=== PATIENT | female | born 1975 | race Caucasian/White ===

== ENCOUNTER 2017-10-16 23:04 | Emergency (ER) | payer OTHER ==
[2017-10-16] MEDS ORDERED: LORazepam 2 MG/ML SDV IVPUSH ONE (23:11)
[2017-10-16] MEDS ORDERED: Sodium Chloride 0.9% 1,000 ML IV ONE (23:11)
--- NOTE | 2017-10-16 23:13 | EDM.PDOC ---
ED HPI GENERAL MEDICAL PROBLEM - General Stated Complaint: PT HAS CHEST PAINS Time Seen by Provider: 10/17/17 01:01 Source of Information: Reports: Patient - History of Present Illness INITIAL COMMENTS - FREE TEXT/NARRATIVE: HISTORY AND PHYSICAL: History of present illness: [Patient presents with complaint of chest pain off and on throughout the day sharp left-sided pain stabbing in nature not associated with diaphoresis or shortness of breath she is out of 10 in no distress no radiation arm neck or jaw History of anxiety No fever nausea vomiting chills sweats no current chest pain no shortness of breath headache dizziness palpitation no bowel or urine symptoms ] Review of systems: As per history of present illness and below otherwise all systems reviewed and negative. Past medical history: As per history of present illness and as reviewed below otherwise noncontributory. Surgical history: As per history of present illness and as reviewed below otherwise noncontributory. Social history: No reported history of drug or alcohol abuse. Family history: As per history of present illness and as reviewed below otherwise noncontributory. Physical exam: HEENT: Atraumatic, normocephalic, pupils reactive, negative for conjunctival pallor or scleral icterus, mucous membranes moist, throat clear, neck supple, nontender, trachea midline. Lungs: Clear to auscultation, breath sounds equal bilaterally, chest nontender on the right can reproduce pain with palpation on the left sternal border, quite uncomfortable from patient Heart: S1S2, regular, negative for clicks, rubs, or JVD. Abdomen: Soft, nondistended, nontender. Negative for masses or hepatosplenomegaly. Negative for costovertebral tenderness. Pelvis: Stable nontender. Genitourinary: Deferred. Rectal: Deferred. Extremities: Atraumatic, negative for cords or calf pain. Neurovascular unremarkable. Neuro: Awake, alert, oriented. Cranial nerves II through XII unremarkable. Cerebellum unremarkable. Motor and sensory unremarkable throughout. Exam nonfocal. Diagnostics: []Lab as below EKG Chest 1 view Therapeutics: []1 L normal saline bolus Ativan 1 mg IV-pain and anxiety improved with Ativan Impression: []Chest wall pain Anxiety Definitive disposition and diagnosis as appropriate pending reevaluation and review of above. Chest Pain Score (Numeric/FACES): 6 - Related Data Allergies Allergy/AdvReac Type Severity Reaction Status Date / Time No Known Allergies Allergy Verified 10/16/17 23:22 Home Meds: Home Meds Norethindrone [Norethindrone] 1 tab PO DAILY 10/16/17 [History] hydrOXYzine Pamoate [Hydroxyzine Pamoate] 1 tab PO DAILY 10/16/17 [History] ED ROS GENERAL - Review of Systems Review Of Systems: ROS reveals no pertinent complaints other than HPI. ED EXAM, GENERAL - Physical Exam Exam: See Below Course - Vital Signs Last Recorded V/S: Last Vital Signs Temp 97.8 F 10/16/17 23:16 Pulse 79 10/17/17 00:12 Resp 24 H 10/17/17 00:12 BP 167/75 H 10/17/17 00:12 Pulse Ox 100 10/17/17 00:12 - Orders/Labs/Meds Orders: Active Orders 24 hr Category Date Time Status EKG Documentation Completion [RC] STAT Care 10/16/17 23:11 Active Chest 1V Frontal [CR] Stat Exams 10/16/17 23:11 Taken UA W/MICROSCOPIC [URIN] Stat Lab 10/16/17 23:11 Ordered Labs: Laboratory Tests 10/16/17 10/16/17 10/16/17 Range/Units 23:20 23:20 23:20 WBC 5.54 (4.0-11.0) K/uL RBC 5.20 (4.30-5.90) M/uL Hgb 15.4 (12.0-16.0) g/dL Hct 45.0 (36.0-46.0) % MCV 86.5 (80.0-98.0) fL MCH 29.6 (27.0-32.0) pg MCHC 34.2 (31.0-37.0) g/dL RDW Std Deviation 45.6 (28.0-62.0) fl RDW Coeff of Jhoana 15 (11.0-15.0) % Plt Count 217 (150-400) K/uL MPV 10.70 (7.40-12.00) fL Neut % (Auto) 42.9 L (48.0-80.0) % Lymph % (Auto) 44.6 H (16.0-40.0) % [place] % (Auto) 10.1 (0.0-15.0) % Eos % (Auto) 2.0 (0.0-7.0) % Baso % (Auto) 0.4 (0.0-1.5) % Neut # (Auto) 2.4 (1.4-5.7) K/uL Lymph # (Auto) 2.5 H (0.6-2.4) K/uL [place] # (Auto) 0.6 (0.0-0.8) K/uL Eos # (Auto) 0.1 (0.0-0.7) K/uL Baso # (Auto) 0.0 (0.0-0.1) K/uL Nucleated RBC % 0.0 /100WBC Nucleated RBCs # 0 K/uL Sodium 139 (136-146) mmol/L Potassium 3.7 (3.5-5.1) mmol/L Chloride 105 (98-110) mmol/L Carbon Dioxide 23 (21-31) mmol/L BUN 16 (6.0-23.0) mg/dL Creatinine 1.0 (0.6-1.5) mg/dL Est Cr Clr Drug Dosing 77.37 mL/min Estimated GFR (MDRD) > 60.0 ml/min Glucose 94 (60-110) mg/dL Calcium 9.9 (8.8-10.8) mg/dL Total Bilirubin 0.5 (0.1-1.5) mg/dL AST 18 (5-40) IU/L ALT 23 (8-54) IU/L Alkaline Phosphatase 118 (40-150) Creatine Kinase 86 (9-236) IU/L CK-MB (CK-2) 1.1 (0-6.6) ng/ml Troponin I < 0.10 (0.0-0.29) NG/ML Total Protein 7.9 (6.0-8.0) g/dL Albumin 4.3 (3.5-5.0) g/dL Globulin 3.6 H (2.0-3.5) g/dL Albumin/Globulin Ratio 1.2 L (1.3-2.8) Amylase 57 (10-90) U/L Lipase 31 (7-80) U/L Meds: Medications Discontinued Medications Generic Name Dose Route Start Last Admin Trade Name Freq PRN Reason Stop Dose Admin Sodium Chloride 1,000 mls @ 999 mls/hr 10/16/17 23:11 10/16/17 23:26 Normal Saline IV 10/17/17 00:11 999 mls/hr STAT ONE Administration Lorazepam 1 mg 10/16/17 23:11 10/16/17 23:27 Ativan IVPUSH 10/16/17 23:12 1 mg ONETIME ONE Administration Departure - Departure Time of Disposition: 01:03 Disposition: Home, Self-Care 01 Condition: Good Clinical Impression: Chest wall pain, Anxiety about health - Discharge Information Referrals: PCP,None [Primary Care Provider] - Additional Instructions: Continue current home medications Return if symptoms persist or worsen Follow-up with primary care in 2 weeks The following information is given to patients seen in the emergency department who are being discharged to home. This information is to outline your options for follow-up care. We provide all patients seen in our emergency department with a follow-up referral. The need for follow-up, as well as the timing and circumstances, are variable depending upon the specifics of your emergency department visit. If you don't have a primary care physician on staff, we will provide you with a referral. We always advise you to contact your personal physician following an emergency department visit to inform them of the circumstance of the visit and for follow-up with them and/or the need for any referrals to a consulting specialist. The emergency department will also refer you to a specialist when appropriate. This referral assures that you have the opportunity for follow-up care with a specialist. All of these measure are taken in an effort to provide you with optimal care, which includes your follow-up. Under all circumstances we always encourage you to contact your private physician who remains a resource for coordinating your care. When calling for follow-up care, please make the office aware that this follow-up is from your recent emergency room visit. If for any reason you are refused follow-up, please contact the [facility] emergency department at and asked to speak to the emergency department charge nurse. - My Orders Last 24 Hours: My Active Orders 10/16/17 23:11 EKG Documentation Completion [RC] STAT Chest 1V Frontal [CR] Stat UA W/MICROSCOPIC [URIN] Stat - Assessment/Plan Last 24 Hours: My Active Orders 10/16/17 23:11 EKG Documentation Completion [RC] STAT Chest 1V Frontal [CR] Stat UA W/MICROSCOPIC [URIN] Stat
[2017-10-16 23:58] LABS: CHLORIDE,CL 105 mmol/L (98-110); SODIUM,NA 139 mmol/L (136-146)
--- NOTE | 2017-10-17 17:04 | CR ---
EXAM DATE: 10/16/17 PATIENT'S AGE: 42 Patient: ROSANA GILMAN Facility: [place], [place] Site . Site : [id number] Study: XRay Chest [id number] 12:04:55 AM Ordering Physician: Cesar Yancey Final Report: INDICATION: Chest pain. TECHNIQUE: Portable AP chest. COMPARISON: None. FINDINGS: Cardiac, mediastinal and hilar contours are within normal limits. Normal pulmonary vasculature. Lungs are grossly clear. No pleural fluid or pneumothorax. IMPRESSION: No signs of acute cardiopulmonary disease. Dictated by Ed Altman MD @ 10/17/2017 1:11:44 AM Dictated by: Ed Altman MD @ 10/17/2017 01:11:49 (Electronic Signature) Report Signed by Proxy. [facility] HOSPITALRichard
== END 2017-10-17 01:17 | disposition home or self-care (01) ==
LOC: MW.ED 23:04
DX: R07.89 Other chest pain (principal); F41.9 Anxiety disorder, unspecified; Z79.899 Other long term (current) drug therapy
CPT/HCPCS: 71010; 80053; 82150; 82550; 82553; 83690; 84484; 85025; 93005; 96361; 96374; 99285; J2060; J7040; 99282

== ENCOUNTER 2019-11-21 03:02 | Emergency (ER) | payer OTHER ==
[2019-11-21] MEDS ORDERED: LORazepam 2 MG/ML SDV IVPUSH ONE (03:20)
--- NOTE | 2019-11-21 03:37 | EDM.PDOC ---
ED HPI GENERAL MEDICAL PROBLEM - General Chief Complaint: Chest Pain Stated Complaint: SOB AND CHEST PAIN Time Seen by Provider: 11/21/19 03:32 Source of Information: Reports: Patient History Limitations: Reports: No Limitations - History of Present Illness INITIAL COMMENTS - FREE TEXT/NARRATIVE: This 44-year-old female presents to the emergency room with chest pain. Patient states she has severe anxiety and is out of her medication and has night terrors and chest pain as a symptom of her anxiety disorder. Patient has no past medical history of heart disease. Patient has no family history of early heart disease. Patient has no history of diabetes. Has lasted over 24 hours Duration: Hour(s):, Day(s): (1), Intermittent Location: Reports: Chest Quality: Reports: Pressure, Stabbing Severity: Moderate Improves with: Reports: None Worsens with: Reports: None, Breathing Associated Symptoms: Reports: Chest Pain chest Pain Score (Numeric/FACES): 6 - Related Data Allergies Allergy/AdvReac Type Severity Reaction Status Date / Time No Known Allergies Allergy Verified 10/16/17 23:22 Home Meds: Home Meds hydrOXYzine pamoate [Hydroxyzine Pamoate] 1 tab PO BID 10/16/17 [History] Sertraline [Zoloft] 25 mg PO DAILY 11/21/19 [History] Past Medical History Psychiatric History: Reports: Anxiety, Depression Endocrine/Metabolic History: Reports: Obesity/BMI 30+ - Infectious Disease History Infectious Disease History: Reports: Chicken Pox Social & Family History - Family History Family Medical History: Noncontributory - Tobacco Use Smoking Status *Q: Never Smoker - Caffeine Use Caffeine Use: Reports: Other - Recreational Drug Use Recreational Drug Use: No ED ROS GENERAL - Review of Systems Review Of Systems: Comprehensive ROS is negative, except as noted in HPI. Constitutional: Reports: No Symptoms HEENT: Reports: No Symptoms Respiratory: Reports: Shortness of Breath Cardiovascular: Reports: Chest Pain Endocrine: Reports: No Symptoms GI/Abdominal: Reports: No Symptoms : Reports: No Symptoms Musculoskeletal: Reports: No Symptoms Skin: Reports: No Symptoms Neurological: Reports: No Symptoms Psychiatric: Reports: Anxiety Hematologic/Lymphatic: Reports: No Symptoms Immunologic: Reports: No Symptoms ED EXAM, GENERAL - Physical Exam Exam: See Below Exam Limited By: No Limitations General Appearance: Alert, WD/WN, No Apparent Distress Ears: Normal External Exam, Normal Canal, Hearing Grossly Normal, Normal TMs Ear Exam: Bilateral Ear: Auricle Normal, Canal Normal Nose: No Blood Throat/Mouth: Normal Inspection, Normal Lips, Normal Teeth Head: Atraumatic, Normocephalic Neck: Normal Inspection, Supple, Non-Tender, Full Range of Motion Respiratory/Chest: No Respiratory Distress, Lungs Clear, Normal Breath Sounds, No Accessory Muscle Use, Chest Non-Tender Cardiovascular: Normal Peripheral Pulses, Regular Rate, Rhythm, No Edema, No Gallop, No JVD, No Murmur, No Rub GI/Abdominal: Normal Bowel Sounds, Soft, Non-Tender, No Organomegaly, No Distention, No Abnormal Bruit (Female) Exam: Deferred Rectal (Female) Exam: Deferred Back Exam: Normal Inspection, Full Range of Motion Extremities: Normal Inspection, Normal Range of Motion, Non-Tender, No Pedal Edema, Normal Capillary Refill Neurological: Alert, Oriented, CN II-XII Intact, Normal Cognition, Normal Gait, No Motor/Sensory Deficits Psychiatric: Normal Affect, Normal Mood Skin Exam: Warm, Dry, Intact, Normal Color, No Rash Lymphatic: No Adenopathy Course - Vital Signs Last Recorded V/S: Last Vital Signs Temp 96 F 11/21/19 03:02 Pulse 92 11/21/19 03:02 Resp 18 11/21/19 03:02 BP 163/75 H 11/21/19 03:02 Pulse Ox 100 11/21/19 03:02 - Orders/Labs/Meds Labs: Laboratory Tests 11/21/19 11/21/19 11/21/19 Range/Units 03:10 03:10 03:10 WBC 6.37 (4.0-11.0) K/uL RBC 5.11 (4.30-5.90) M/uL Hgb 14.8 (12.0-16.0) g/dL Hct 44.3 (36.0-46.0) % MCV 86.7 (80.0-98.0) fL MCH 29.0 (27.0-32.0) pg MCHC 33.4 (31.0-37.0) g/dL RDW Std Deviation 50.4 (28.0-62.0) fl RDW Coeff of Jhoana 16 H (11.0-15.0) % Plt Count 258 (150-400) K/uL MPV 10.20 (7.40-12.00) fL Neut % (Auto) 55.7 (48.0-80.0) % Lymph % (Auto) 32.7 (16.0-40.0) % [place] % (Auto) 8.8 (0.0-15.0) % Eos % (Auto) 2.5 (0.0-7.0) % Baso % (Auto) 0.3 (0.0-1.5) % Neut # (Auto) 3.6 (1.4-5.7) K/uL Lymph # (Auto) 2.1 (0.6-2.4) K/uL [place] # (Auto) 0.6 (0.0-0.8) K/uL Eos # (Auto) 0.2 (0.0-0.7) K/uL Baso # (Auto) 0.0 (0.0-0.1) K/uL Nucleated RBC % 0.0 /100WBC Nucleated RBCs # 0 K/uL INR 0.94 Sodium 128 L (136-145) mmol/L Potassium 4.0 (3.5-5.1) mmol/L Chloride 99 (98-107) mmol/L Carbon Dioxide 27.4 (21.0-32.0) mmol/L BUN 17 (7.0-18.0) mg/dL Creatinine 1.0 (0.6-1.0) mg/dL Est Cr Clr Drug Dosing 75.81 mL/min Estimated GFR (MDRD) > 60.0 ml/min Glucose 121 H (74-106) mg/dL Calcium 8.8 (8.5-10.1) mg/dL Total Bilirubin 0.3 (0.2-1.0) mg/dL AST 13 L (15-37) IU/L ALT 28 (14-63) IU/L Alkaline Phosphatase 109 (46-116) U/L Troponin I < 0.050 (0.000-0.056) ng/mL Total Protein 7.9 (6.4-8.2) g/dL Albumin 3.7 (3.4-5.0) g/dL Globulin 4.2 H (2.6-4.0) g/dL Albumin/Globulin Ratio 0.9 (0.9-1.6) Meds: Medications Discontinued Medications Generic Name Dose Route Start Last Admin Trade Name Fabiana PRN Reason Stop Dose Admin Sodium Chloride 1,000 mls @ 999 mls/hr 11/21/19 03:56 11/21/19 04:00 Normal Saline IV 11/21/19 04:56 999 mls/hr .Bolus ONE Administration Lorazepam 1 mg 11/21/19 03:20 11/21/19 03:25 Ativan IVPUSH 11/21/19 03:21 1 mg ONETIME ONE Administration Departure - Departure Time of Disposition: 05:54 Disposition: Home, Self-Care 01 Condition: Good Clinical Impression: Hyponatremia, Anxiety disorder Instructions: Hyponatremia, Hyponatremia, [id number] Referrals: PCP,None [Primary Care Provider] - Forms: ED Department Discharge Sepsis Event Note - Evaluation Sepsis Screening Result: No Definite Risk - Focused Exam Vital Signs: Vital Signs Temp Pulse Resp BP Pulse Ox 11/21/19 03:02 96 F 92 18 163/75 H 100 Date Exam was Performed: 11/21/19 Time Exam was Performed: 05:54
--- NOTE | 2019-11-21 03:45 | CR ---
INDICATION: Chest pain TECHNIQUE: Chest radiograph 1 view COMPARISON: 10/29/19 FINDINGS: Moderate degradation of image quality noted due to body habitus. Mediastinum: The mediastinum is normal in appearance. The heart silhouette is normal in size and morphology. Lung: Both lungs are unremarkable in appearance. No sign of pleural effusion seen. No pneumothorax is identified. Bone and Soft tissue: Unremarkable for age. IMPRESSION: 1. No acute cardiopulmonary disease is seen. Dictated by: Alex Treviño MD @ 11/21/2019 03:43:52 (Electronically Signed)
[2019-11-21 03:49] LABS: BLOOD UREA NITROGEN,BUN 17 mg/dL (7.0-18.0); CARBON DIOXIDE,CO2 27.4 mmol/L (21.0-32.0); CHLORIDE,CL 99 mmol/L (98-107); GLUCOSE RANDOM 121 mg/dL (74-106); SODIUM,NA 128 mmol/L (136-145)
[2019-11-21] MEDS ORDERED: Sodium Chloride 0.9% 1,000 ML IV ONE (03:56)
== END 2019-11-21 06:05 | disposition home or self-care (01) ==
LOC: MW.ED 03:02
DX: F41.9 Anxiety disorder, unspecified (principal); E87.1 Hypo-osmolality and hyponatremia; F32.9 Major depressive disorder, single episode, unspecified; E66.9 Obesity, unspecified; Z68.43 Body mass index [BMI] 50.0-59.9, adult
CPT/HCPCS: 36415; 71045; 80053; 84484; 85025; 85610; 93005; 96361; 96374; 99285; J2060; J7030; 99283

== ENCOUNTER 2020-09-11 10:23 | Emergency (ER) | payer OTHER ==
[2020-09-11] MEDS ORDERED: Sodium Chloride 0.9% 1,000 ML IV ONE (10:32)
--- NOTE | 2020-09-11 10:32 | PCM.SN.2 ---
#1 Interpretation EKG Date: 09/11/20 Time: 10:32 Rhythm: NSR Rate (Beats/Min): 81 [place]: Normal P-Wave: Present QRS: Normal ST-T: Normal QT: Normal MS/PQ Interval: 165 Comparison: NA - No Prior EKG (Normal EKG)
--- NOTE | 2020-09-11 10:36 | EDM.PDOC ---
ED HPI GENERAL MEDICAL PROBLEM - General Chief Complaint: Chest Pain Stated Complaint: SHORTNESS OF BREATHE Time Seen by Provider: 09/11/20 10:25 Source of Information: Reports: Patient History Limitations: Reports: No Limitations - History of Present Illness INITIAL COMMENTS - FREE TEXT/NARRATIVE: HISTORY AND PHYSICAL: History of present illness: Patient is a 45-year-old female who presents to the emergency room with complaints of shortness of breath, midsternal chest pain, dizziness and feeling anxious. She states she was diagnosed with COVID-19 on 09/03/2020. Since that time she has noticed that her anxiety has been increasing. She does have a history of anxiety and usually takes Atarax as needed. Two nights ago she states her anxiety was "so bad I took 2 pills". She did not get any relief with her medication. Again last evening her anxiety worsened associated with shortness of breath and chest pain, took two tabs of Atarax without relief. She woke up this morning and took 1 tablet of the Atarax without any relief. States she usually finds good relief with this medication so she decided she needed to come in for evaluation. Patient denies any fever, chills, headache, change in vision, syncope or near syncope. Denies any neck pain/stiffness, back pain, abdominal pain, nausea, vomiting, diarrhea, constipation or dysuria. Has not noted any blood in urine or stool. Patient has been eating and drinking appropriately. Review of systems: As per history of present illness and below otherwise all systems reviewed and negative. Past medical history: As per history of present illness and as reviewed below otherwise noncontributory. Surgical history: As per history of present illness and as reviewed below otherwise noncontributory. Social history: See social history for further information Family history: As per history of present illness and as reviewed below otherwise noncontributory. Physical exam: General: Well developed and well nourished. Alert and orientated x 3. Nontoxic in appearance and in no acute distress. Vital signs are stable and have been reviewed by me. Nursing notes were reviewed. HEENT: Atraumatic, normocephalic, pupils equal and reactive bilaterally, negative for conjunctival pallor or scleral icterus, mucous membranes moist, TMs normal bilaterally, throat clear, neck supple, nontender, trachea midline. No d rooling or trismus noted. No meningeal signs. No hot potato voice noted. Lungs: Clear to auscultation, breath sounds equal bilaterally, chest nontender. Normal work of breathing, no accessory muscles used. Heart: S1S2, regular rate and rhythm without overt murmur Abdomen: Soft, nondistended, nontender. Negative for masses or hepatosplenomegaly. Negative for costovertebral tenderness. Pelvis: Stable nontender. Genitourinary: Deferred. Rectal: Deferred. Skin: Intact, warm, dry. No lesions or rashes noted. Hematologic: No petechiae or purpra. Mucosa appropriate color and normal nail bed color and refill. Extremities: Atraumatic, moves all extremities per self without difficulty or deficits, negative for cords or calf pain. Neurovascular unremarkable. Neuro: Awake, alert, oriented. Cranial nerves II through XII unremarkable. Cerebellum unremarkable. Motor and sensory unremarkable throughout. Exam nonfocal. Psychiatric: Mood and affect are appropriate. Normal thought process. Answering questions appropriately. Notes: Chest x-ray does show an infiltrate to the left lower lobe and right upper lobe. Lab work is unremarkable. Her vital signs have improved. Given her COVID-19 status and x-ray report I will place her on azithromycin and Decadron. I have spoken with the patient/caregiver and discussed today's findings, in addition to providing specific details for plan of care. Reassessment at the time of disposition demonstrates that the patient is in no acute distress. The patient has remained stable throughout the entire ED visit and is without objective evidence for acute process requiring urgent intervention or hospitalization. The patient is stable for discharge, counseling was provided and we discussed in great detail signs and symptoms that would prompt them to return to the Emergency Department. Medication, follow up and supportive care measures were reviewed and discussed. Voices understanding and is agreeable to plan of care. Denies any further questions or concerns at this time. Diagnostics: CBC, CMP, Troponin, EKG, CXR, D.Dimer Therapeutics: None Prescription: Ativan (#10), Zpak, Decadron Impression: COVID 19 Inflitrate of lung Plan: 1. Today your chest x-ray showed an infiltrate. We will be giving you a prescription for antibiotic and steroid. Please take the medications as directed. Additional medication for your anxiety has been given to you, do not take this in addition to your Atarax. Continue to monitor for trouble breathing, new confusion or inability to arouse, bluish lips or face or any of the other symptoms we discussed -if this occurs please return to the emergency room. 2. May alternate Tylenol and ibuprofen as needed for pain and fever management. 3. We encourage you to follow up with your primary care provider and/or recommended specialist in the next few days for re-evaluation and further care/management. If your symptoms should worsen, new symptoms develop or any of the signs and symptoms we discussed should arise please return to the emergency room or call 911 (if needed). 4. The [facility] department will be calling you and following up with you. The [place] [employer] Hotline phone number , They are open Tuesday - Tuesday 7am - 7pm. Follow up with your primary care provider for re-evaluation and re-testing after the 10 day quarantine and discuss when you should be seen. Definitive disposition and diagnosis as appropriate pending reevaluation and review of above. chest Pain Score (Numeric/FACES): 4 - Related Data Allergies Allergy/AdvReac Type Severity Reaction Status Date / Time No Known Allergies Allergy Verified 10/16/17 23:22 Home Meds: Home Meds hydrOXYzine pamoate [Hydroxyzine Pamoate] 1 - 2 tab PO DAILY PRN 10/16/17 [History] Azithromycin [Zithromax] 1 dose PO DAILY 5 Days #6 tab 09/11/20 [Rx] LORazepam [Ativan] 1 mg PO BEDTIME PRN #10 tab 09/11/20 [Rx] dexAMETHasone [Decadron] 6 mg PO DAILY 5 Days #5 tablet 09/11/20 [Rx] Past Medical History Psychiatric History: Reports: Anxiety, Depression Endocrine/Metabolic History: Reports: Obesity/BMI 30+ - Infectious Disease History Infectious Disease History: Reports: Chicken Pox Social & Family History - Family History Family Medical History: Noncontributory - Caffeine Use Caffeine Use: Reports: Other ED ROS GENERAL - Review of Systems Review Of Systems: Comprehensive ROS is negative, except as noted in HPI. ED EXAM, GENERAL - Physical Exam Exam: See Below (See dictation) Course - Vital Signs Last Recorded V/S: Last Vital Signs Temp 96.5 F L 09/11/20 10:26 Pulse 91 09/11/20 10:26 Resp 18 09/11/20 10:26 BP 191/86 H 09/11/20 10:26 Pulse Ox 95 09/11/20 10:26 - Orders/Labs/Meds Orders: Active Orders 24 hr Category Date Time Status EKG Documentation Completion [RC] STAT Care 09/11/20 10:32 Active Labs: Laboratory Tests 09/11/20 09/11/20 09/11/20 Range/Units 10:25 10:25 10:25 WBC 3.31 L (4.0-11.0) K/uL RBC 5.29 (4.30-5.90) M/uL Hgb 15.1 (12.0-16.0) g/dL Hct 45.9 (36.0-46.0) % MCV 86.8 (80.0-98.0) fL MCH 28.5 (27.0-32.0) pg MCHC 32.9 (31.0-37.0) g/dL RDW Std Deviation 47.6 (28.0-62.0) fl RDW Coeff of Jhoana 15 (11.0-15.0) % Plt Count 221 (150-400) K/uL MPV 10.10 (7.40-12.00) fL Neut % (Auto) 51.6 (48.0-80.0) % Lymph % (Auto) 38.1 (16.0-40.0) % [place] % (Auto) 8.2 (0.0-15.0) % Eos % (Auto) 1.8 (0.0-7.0) % Baso % (Auto) 0.3 (0.0-1.5) % Neut # (Auto) 1.7 (1.4-5.7) K/uL Lymph # (Auto) 1.3 (0.6-2.4) K/uL [place] # (Auto) 0.3 (0.0-0.8) K/uL Eos # (Auto) 0.1 (0.0-0.7) K/uL Baso # (Auto) 0.0 (0.0-0.1) K/uL Nucleated RBC % 0.0 /100WBC Nucleated RBCs # 0 K/uL D-Dimer, Quantitative 0.22 (0.0-0.50) mg/L FEU Sodium 138 (136-145) mmol/L Potassium 4.2 (3.5-5.1) mmol/L Chloride 102 (98-107) mmol/L Carbon Dioxide 27.4 (21.0-32.0) mmol/L BUN 13 (7.0-18.0) mg/dL Creatinine 1.0 (0.6-1.0) mg/dL Est Cr Clr Drug Dosing 75.03 mL/min Estimated GFR (MDRD) > 60.0 ml/min Glucose 179 H (74-106) mg/dL Calcium 9.2 (8.5-10.1) mg/dL Total Bilirubin 0.3 (0.2-1.0) mg/dL AST 22 (15-37) IU/L ALT 33 (14-63) IU/L Alkaline Phosphatase 125 H (46-116) U/L Troponin I < 0.050 (0.000-0.056) ng/mL Total Protein 8.0 (6.4-8.2) g/dL Albumin 3.8 (3.4-5.0) g/dL Globulin 4.2 H (2.6-4.0) g/dL Albumin/Globulin Ratio 0.9 (0.9-1.6) Meds: Medications Discontinued Medications Generic Name Dose Route Start Last Admin Trade Name Freq PRN Reason Stop Dose Admin Sodium Chloride 1,000 mls @ 999 mls/hr 09/11/20 10:32 09/11/20 10:37 Normal Saline IV 09/11/20 11:32 999 mls/hr STAT ONE Administration Departure - Departure Time of Disposition: 11:50 Disposition: Home, Self-Care 01 Clinical Impression: COVID-19, Infiltrate of lung present on chest x-ray Prescriptions: LORazepam [Ativan] 1 mg PO BEDTIME PRN #10 tab PRN Reason: Anxiety dexAMETHasone [Decadron] 6 mg PO DAILY 5 Days #5 tablet Azithromycin [Zithromax] 1 dose PO DAILY 5 Days #6 tab Instructions: COVID-19 Frequently Asked Questions, Community-Acquired Pneumonia, Adult, [id number] Referrals: PCP,None [Primary Care Provider] - Forms: ED Department Discharge Additional Instructions: The following information is given to patients seen in the emergency department who are being discharged to home. This information is to outline your options for follow-up care. We provide all patients seen in our emergency department with a follow-up referral. The need for follow-up, as well as the timing and circumstances, are variable depending upon the specifics of your emergency department visit. If you don't have a primary care physician on staff, we will provide you with a referral. We always advise you to contact your personal physician following an emergency department visit to inform them of the circumstance of the visit and for follow-up with them and/or the need for any referrals to a consulting specialist. The emergency department will also refer you to a specialist when appropriate. This referral assures that you have the opportunity for follow-up care with a specialist. All of these measure are taken in an effort to provide you with opti mal care, which includes your follow-up. Under all circumstances we always encourage you to contact your private physician who remains a resource for coordinating your care. When calling for follow-up care, please make the office aware that this follow-up is from your recent emergency room visit. If for any reason you are refused follow-up, please contact the [facility] Emergency Department at and asked to speak to the emergency department charge nurse. [facility] [address] [place] [address] [id number] Thank you for choosing the [facility] emergency department in [place] for your medical needs today. It was a pleasure caring for you. Today you were seen in the emergency department for shortness of breath and chest pain with COVID-19. 1. Today your chest x-ray showed an infiltrate. We will be giving you a prescription for antibiotic and steroid. Please take the medications as directed. Additional medication for your anxiety has been given to you, do not take this in addition to your Atarax. Continue to monitor for trouble breathing, new confusion or inability to arouse, bluish lips or face or any of the other symptoms we discussed -if this occurs please return to the emergency room. 2. May alternate Tylenol and ibuprofen as needed for pain and fever management. 3. We encourage you to follow up with your primary care provider and/or recommended specialist in the next few days for re-evaluation and further care/management. If your symptoms should worsen, new symptoms develop or any of the signs and symptoms we discussed should arise please return to the emergency room or call 911 (if needed). 4. The [facility] department will be calling you and following up with you. The [place] [employer] Hotline phone number , They are open Tuesday - Tuesday 7am - 7pm. Follow up with your primary care provider for re-evaluation and re-testing after the 10 day quarantine and discuss when you should be seen. Sepsis Event Note (ED) - Evaluation Sepsis Screening Result: Possible Sepsis Risk - Focused Exam Vital Signs: Vital Signs Temp Pulse Resp BP Pulse Ox 09/11/20 10:26 96.5 F L 91 18 191/86 H 95 - My Orders Last 24 Hours: My Active Orders 09/11/20 10:32 EKG Documentation Completion [RC] STAT - Assessment/Plan Last 24 Hours: My Active Orders 09/11/20 10:32 EKG Documentation Completion [RC] STAT
[2020-09-11 11:09] LABS: BLOOD UREA NITROGEN,BUN 13 mg/dL (7.0-18.0); CARBON DIOXIDE,CO2 27.4 mmol/L (21.0-32.0); CHLORIDE,CL 102 mmol/L (98-107); GLUCOSE RANDOM 179 mg/dL (74-106); POTASSIUM,K 4.2 mmol/L (3.5-5.1); SODIUM,NA 138 mmol/L (136-145)
--- NOTE | 2020-09-11 11:15 | CR ---
INDICATION: Chest pain. COMPARISON: None. TECHNIQUE: Portable AP chest. FINDINGS: Cardiac silhouette is normal in size. Patchy infiltrates left lower lobe and right upper lobe. No pneumothorax or pleural effusion. IMPRESSION: Infiltrates right upper lobe and left lower lobe. Dictated by Igor Wright MD @ Sep 11 2020 11:13AM Signed by Dr. Igor Wright @ Sep 11 2020 11:14AM
== END 2020-09-11 11:59 | disposition home or self-care (01) ==
LOC: MW.ED 10:23
DX: U07.1 COVID-19 (principal); R91.8 Other nonspecific abnormal finding of lung field; E66.9 Obesity, unspecified
CPT/HCPCS: 36415; 71045; 80053; 84484; 85025; 85379; 93005; 99285; J7030; 99283

== ENCOUNTER 2021-03-13 15:07 | Emergency (ER) | payer OTHER ==
[2021-03-13] MEDS ORDERED: Sodium Chloride 0.9% 10 ML Syringe FLUSH PRN ×2 (15:39→16:41)
[2021-03-13] MEDS ORDERED: Ondansetron 4 MG/2 ML SDV IVPUSH ONE (15:39)
[2021-03-13] MEDS ORDERED: Morphine 4 MG/ML Syringe IVPUSH ONE (15:39)
[2021-03-13] MEDS ORDERED: Lactated Ringers 1,000 ML IV ONE (15:39)
[2021-03-13] MEDS ORDERED: Sodium Chloride 0.9% 2.5 ML Syringe FLUSH PRN ×2 (15:39→16:41)
[2021-03-13] MEDS ORDERED: Metoclopramide 10 MG/2 ML SDV IVPUSH ONE (16:41)
[2021-03-13] MEDS ORDERED: diphenhydrAMINE 50 MG/ML SDV IVPUSH ONE (16:41)
--- NOTE | 2021-03-13 16:41 | EDM.PDOC ---
ED HPI GENERAL MEDICAL PROBLEM - General Chief Complaint: Gastrointestinal Problem Stated Complaint: VOMITTING Time Seen by Provider: 03/13/21 16:24 - History of Present Illness INITIAL COMMENTS - FREE TEXT/NARRATIVE: 46-year-old female minimal past history of gout anxiety depression who is presenting with headache nausea vomiting and diarrhea. Patient felt well yesterday. Around noon today she felt a gradual onset posterior headache she then developed significant nausea vomiting abdominal bloating and nonbloody diarrhea. Symptoms constant and stable no exacerbating or alleviating factors no radiation or other associated symptoms. Patient has been fully vaccinated for coronavirus her last vaccination was a couple weeks ago. Patient does have a mild chest pressure. She says that this is how her anxiety typically pr esents. No fevers no chills no known sick contacts. headache Pain Score (Numeric/FACES): 7 - Related Data Allergies Allergy/AdvReac Type Severity Reaction Status Date / Time No Known Allergies Allergy Verified 03/13/21 16:37 Home Meds: Home Meds Anti-Anxiety 03/13/21 [History] Past Medical History - Past Health History Medical/Surgical History: Denies Medical/Surgical History Psychiatric History: Reports: Anxiety, Depression Endocrine/Metabolic History: Reports: Obesity/BMI 30+ - Infectious Disease History Infectious Disease History: Reports: Chicken Pox Social & Family History - Family History Family Medical History: No Pertinent Family History - Caffeine Use Caffeine Use: Reports: Other ED ROS GENERAL - Review of Systems Review Of Systems: See Below Free Text/Narrative/Comment: General: No fever. Skin: No rash. Eyes: No vision problems. ENT: No sore throat. Neck: No neck stiffness. Respiratory: No shortness of breath. Cardiac: No chest pain. Gastrointestinal: Per HPI. Urinary: No dysuria. Musculoskeletal: No myalgias/arthralgias. Neurologic: Per HPI ED EXAM, GENERAL - Physical Exam Exam: See Below Free Text/Narrative:: General Appearance: No acute distress, appears comfortable Skin: No rash HEENT: Normocephalic/atraumatic, sclera anicteric, mucous membranes dry Neck: Normal range of motion Chest and Lungs: Bilateral breath sounds, clear to auscultation Cardiovascular: Regular rate and rhythm, no murmur Abdomen: Soft, non-tender Back: Normal Musculoskeletal: No edema or tenderness Neurologic: Awake, alert, no obvious deficits, moving all extremities Psychiatric: Appropriate, cooperative #1 Interpretation EKG Date: 03/13/21 Time: 16:36 EKG Interpretation Comments: Normal sinus rhythm rate of 84 normal axis and intervals no acute ischemia Course - Vital Signs Last Recorded V/S: Last Vital Signs Temp 95.7 F L 03/13/21 16:00 Pulse 86 03/13/21 16:00 Resp 19 03/13/21 16:00 BP 169/97 H 03/13/21 16:00 Pulse Ox 97 03/13/21 16:00 - Orders/Labs/Meds Orders: Active Orders 24 hr Category Date Time Status Lactated Ringers [Ringers, Lactated] 1,000 ml Med 03/13/21 16:45 Active IV .BOLUS Sodium Chloride 0.9% [Saline Flush] Med 03/13/21 16:41 Active 10 ml FLUSH ASDIRECTED PRN Sodium Chloride 0.9% [Saline Flush] Med 03/13/21 16:41 Active 2.5 ml FLUSH ASDIRECTED PRN Saline Lock Insert [OM.PC] Stat Oth 03/13/21 16:41 Ordered Medication Orders Lactated Ringer's (Ringers, Lactated) 1,000 mls @ 999 mls/hr IV .BOLUS EDWIN Last Admin: 03/13/21 16:52 Dose: 999 mls/hr Documented by: STEFF Sodium Chloride (Sodium Chloride 0.9% 10 Ml Syringe) 10 ml FLUSH ASDIRECTED PRN PRN Reason: Keep Vein Open Last Admin: 03/13/21 17:11 Dose: 10 ml Documented by: MICHELLE Sodium Chloride (Sodium Chloride 0.9% 2.5 Ml Syringe) 2.5 ml FLUSH ASDIRECTED PRN PRN Reason: Keep Vein Open Last Admin: 03/13/21 17:11 Dose: 2.5 ml Documented by: MICHELLE Labs: Laboratory Tests 03/13/21 03/13/21 Range/Units 16:14 16:14 WBC 6.26 (4.0-11.0) K/uL RBC 5.05 (4.30-5.90) M/uL Hgb 14.5 (12.0-16.0) g/dL Hct 43.4 (36.0-46.0) % MCV 85.9 (80.0-98.0) fL MCH 28.7 (27.0-32.0) pg MCHC 33.4 (31.0-37.0) g/dL RDW Std Deviation 46.2 (28.0-62.0) fl RDW Coeff of Jhoana 15 (11.0-15.0) % Plt Count 234 (150-400) K/uL MPV 10.70 (7.40-12.00) fL Neut % (Auto) 74.9 (48.0-80.0) % Lymph % (Auto) 18.4 (16.0-40.0) % [place] % (Auto) 5.8 (0.0-15.0) % Eos % (Auto) 0.6 (0.0-7.0) % Baso % (Auto) 0.3 (0.0-1.5) % Neut # (Auto) 4.7 (1.4-5.7) K/uL Lymph # (Auto) 1.2 (0.6-2.4) K/uL [place] # (Auto) 0.4 (0.0-0.8) K/uL Eos # (Auto) 0.0 (0.0-0.7) K/uL Baso # (Auto) 0.0 (0.0-0.1) K/uL Nucleated RBC % 0.0 /100WBC Nucleated RBCs # 0 K/uL Sodium 139 (136-145) mmol/L Potassium 4.4 (3.5-5.1) mmol/L Chloride 102 (98-107) mmol/L Carbon Dioxide 28.3 (21.0-32.0) mmol/L BUN 14 (7.0-18.0) mg/dL Creatinine 1.1 H (0.6-1.0) mg/dL Est Cr Clr Drug Dosing 67.50 mL/min Estimated GFR (MDRD) 53.7 ml/min Glucose 158 H (74-106) mg/dL Calcium 9.3 (8.5-10.1) mg/dL Total Bilirubin 0.3 (0.2-1.0) mg/dL AST 16 (15-37) IU/L ALT 32 (14-63) IU/L Alkaline Phosphatase 123 H (46-116) U/L Troponin I < 0.050 (0.000-0.056) ng/mL Total Protein 8.0 (6.4-8.2) g/dL Albumin 3.8 (3.4-5.0) g/dL Globulin 4.2 H (2.6-4.0) g/dL Albumin/Globulin Ratio 0.9 (0.9-1.6) Lipase 79 (73-393) U/L Meds: Medications Generic Name Dose Route Start Last Admin Trade Name Freq PRN Reason Stop Dose Admin Lactated Ringer's 1,000 mls @ 999 mls/hr 03/13/21 16:45 03/13/21 16:52 Ringers, Lactated IV 999 mls/hr .BOLUS EDWIN Administration Sodium Chloride 10 ml 03/13/21 16:41 03/13/21 17:11 Sodium Chloride 0.9% 10 Ml Syringe FLUSH 10 ml ASDIRECTED PRN Administration Keep Vein Open Sodium Chloride 2.5 ml 03/13/21 16:41 03/13/21 17:11 Sodium Chloride 0.9% 2.5 Ml Syringe FLUSH 2.5 ml ASDIRECTED PRN Administration Keep Vein Open Discontinued Medications Generic Name Dose Route Start Last Admin Trade Name Freq PRN Reason Stop Dose Admin Diphenhydramine HCl 25 mg 03/13/21 16:41 03/13/21 16:49 Diphenhydramine 50 Mg/Ml Sdv IVPUSH 03/13/21 16:42 25 mg ONETIME ONE Administration Lactated Ringer's 1,000 mls @ 999 mls/hr 03/13/21 15:39 03/13/21 17:10 Ringers, Lactated IV 03/13/21 16:39 Not Given .BOLUS ONE Metoclopramide HCl 10 mg 03/13/21 16:41 03/13/21 16:50 Metoclopramide 10 Mg/2 Ml Sdv IVPUSH 03/13/21 16:42 10 mg ONETIME ONE Administration Morphine Sulfate 4 mg 03/13/21 15:39 03/13/21 17:10 Morphine 4 Mg/Ml Syringe IVPUSH 03/13/21 15:40 Not Given ONETIME ONE Ondansetron HCl 4 mg 03/13/21 15:39 03/13/21 17:11 Ondansetron 4 Mg/2 Ml Sdv IVPUSH 03/13/21 15:40 Not Given ONETIME ONE Sodium Chloride 10 ml 03/13/21 15:39 Sodium Chloride 0.9% 10 Ml Syringe FLUSH ASDIRECTED PRN Keep Vein Open Sodium Chloride 2.5 ml 03/13/21 15:39 Sodium Chloride 0.9% 2.5 Ml Syringe FLUSH ASDIRECTED PRN Keep Vein Open Departure - Departure Time of Disposition: 17:41 Disposition: Home, Self-Care 01 Condition: Good Clinical Impression: Viral gastroenteritis - Discharge Information *PRESCRIPTION DRUG MONITORING PROGRAM REVIEWED*: Not Applicable *COPY OF PRESCRIPTION DRUG MONITORING REPORT IN PATIENT ANUSHA: Not Applicable Instructions: Viral Gastroenteritis, Adult Referrals: Katerine Fermin NP [Primary Care Provider] - Forms: ED Department Discharge Additional Instructions: The following information is given to patients seen in the emergency department who are being discharged to home. This information is to outline your options for follow-up care. We provide all patients seen in our emergency department with a follow-up referral. The need for follow-up, as well as the timing and circumstances, are variable depending upon the specifics of your emergency department visit. If you don't have a primary care physician on staff, we will provide you with a referral. We always advise you to contact your personal physician following an emergency department visit to inform them of the circumstance of the visit and for follow-up with them and/or the need for any referrals to a consulting specialist. The emergency department will also refer you to a specialist when appropriate. This referral assures that you have the opportunity for follow-up care with a specialist. All of these measure are taken in an effort to provide you with optimal care, which includes your follow-up. Under all circumstances we always encourage you to contact your private physician who remains a resource for coordinating your care. When calling for follow-up care, please make the office aware that this follow-up is from your recent emergency room visit. If for any reason you are refused follow-up, please contact the [facility] Emergency Department at and asked to speak to the emergency department charge nurse. Sepsis Event Note (ED) - Focused Exam Vital Signs: Vital Signs Temp Pulse Resp BP Pulse Ox 03/13/21 16:00 95.7 F L 86 19 169/97 H 97 - My Orders Last 24 Hours: My Active Orders 03/13/21 16:41 Sodium Chloride 0.9% [Saline Flush] 10 ml FLUSH ASDIRECTED PRN Sodium Chloride 0.9% [Saline Flush] 2.5 ml FLUSH ASDIRECTED PRN Saline Lock Insert [OM.PC] Stat 03/13/21 16:45 Lactated Ringers [Ringers, Lactated] 1,000 ml IV .BOLUS - Assessment/Plan Last 24 Hours: My Active Orders 03/13/21 16:41 Sodium Chloride 0.9% [Saline Flush] 10 ml FLUSH ASDIRECTED PRN Sodium Chloride 0.9% [Saline Flush] 2.5 ml FLUSH ASDIRECTED PRN Saline Lock Insert [OM.PC] Stat 03/13/21 16:45 Lactated Ringers [Ringers, Lactated] 1,000 ml IV .BOLUS Assessment:: 46-year-old female presents symptoms most consistent with a viral gastroenteritis. Neurologic exam is nonfocal headache is not thunderclap I do not have a concern for meningitis or encephalitis nor for subarachnoid hemorrhage. Given the associated headache we will attempt to control symptoms at first with Reglan Benadryl IV fluids for clinical dehydration and will reassess. No focal abdominal tenderness to suggest diverticulitis or appendicitis. No cough no shortness of breath nothing that suggests Covid. CBC CMP IV fluids and meds pending will reassess. 1740: Patient's labs are normal. Patient symptoms have resolved with treatment. No nausea no headache. Comfortable going home strict return precaution discussed and understood.
[2021-03-13] MEDS ORDERED: Lactated Ringers 1,000 ML IV SCH (16:45)
[2021-03-13 17:09] LABS: BLOOD UREA NITROGEN,BUN 14 mg/dL (7.0-18.0); CARBON DIOXIDE,CO2 28.3 mmol/L (21.0-32.0); CHLORIDE,CL 102 mmol/L (98-107); GLUCOSE RANDOM 158 mg/dL (74-106); LIPASE 79 U/L (73-393); POTASSIUM,K 4.4 mmol/L (3.5-5.1); SODIUM,NA 139 mmol/L (136-145)
== END 2021-03-13 17:58 | disposition home or self-care (01) ==
LOC: MW.ED 15:07
DX: A08.4 Viral intestinal infection, unspecified (principal); E66.9 Obesity, unspecified; Z68.43 Body mass index [BMI] 50.0-59.9, adult
CPT/HCPCS: 36415; 80053; 83690; 84484; 85025; 93005; 96374; 96375; 99284; J1200; J2765; J7120; 93010

== ENCOUNTER 2021-06-09 19:35 | Emergency (ER) | payer BC, OTHER ==
[2021-06-09] MEDS ORDERED: Sodium Chloride 0.9% 1,000 ML IV ONE (19:41)
[2021-06-09] MEDS ORDERED: LORazepam 2 MG/ML SDV IVPUSH ONE (19:41)
[2021-06-09] MEDS ORDERED: Aspirin 81 MG Tab.Chew PO ONE (19:41)
--- NOTE | 2021-06-09 19:41 | EDM.PDOC ---
ED HPI GENERAL MEDICAL PROBLEM - General Stated Complaint: HEART RACING, CHEST PRESSURE Time Seen by Provider: 06/09/21 19:37 Source of Information: Reports: Patient History Limitations: Reports: No Limitations - History of Present Illness INITIAL COMMENTS - FREE TEXT/NARRATIVE: 46-year-old female past medical history anxiety, obesity presents for chest pressure. Patient notes that she has been struggling with anxiety. She is on hydroxyzine as needed. Over the last week patient has noted worsening anxiety and went to her primary care physician a few days ago and was prescribed a new anxiety medication which she has not yet picked up. Patient states that her anxiety typically manifests as a mid substernal chest pressure, shortness of breath, heart racing sensation. Today roughly an hour and a half prior to arrival she began to experience left anterior chest pressure radiating down the left arm and to the left upper back and neck worse than her baseline anxiety chest pressure with associated shortness of breath and heart racing sensation. She states that it feels different than her typical anxiety and worse. She tried taking hydroxyzine at home with minimal relief. She denies any family history of cardiac pathology, denies tobacco use. She is never been diagnosed any cardiac conditions and has never had a stress test. chest Pain Score (Numeric/FACES): 7 - Related Data Allergies Allergy/AdvReac Type Severity Reaction Status Date / Time No Known Allergies Allergy Verified 06/09/21 19:43 Home Meds: Home Meds hydrOXYzine HCL [hydrOXYzine] 06/09/21 [History] Past Medical History - Past Health History Medical/Surgical History: Denies Medical/Surgical History Cardiovascular History: Reports: Angina, Other (See Below) Other Cardiovascular History: chest pain "due to anxiety" Psychiatric History: Reports: Anxiety, Depression Endocrine/Metabolic History: Reports: Obesity/BMI 30+ - Infectious Disease History Infectious Disease History: Reports: Chicken Pox - Past Surgical History Cardiovascular Surgical History: Reports: None Endocrine Surgical History: Reports: None Social & Family History - Family History Family Medical History: No Pertinent Family History - Caffeine Use Caffeine Use: Reports: None ED ROS GENERAL - Review of Systems Review Of Systems: Comprehensive ROS is negative, except as noted in HPI. ED EXAM, GENERAL - Physical Exam Exam: See Below Exam Limited By: No Limitations General Appearance: Alert, WD/WN, No Apparent Distress, Anxious Ears: Hearing Grossly Normal Throat/Mouth: Normal Voice, No Airway Compromise Head: Atraumatic, Normocephalic Neck: Normal Inspection Respiratory/Chest: No Respiratory Distress, Lungs Clear, Normal Breath Sounds, No Accessory Muscle Use Cardiovascular: Normal Peripheral Pulses, No Edema, Tachycardia GI/Abdominal: Soft, Non-Tender Extremities: Normal Inspection Neurological: Alert, Normal Cognition, Normal Gait Psychiatric: Normal Affect, Normal Mood, Anxious Skin Exam: Warm, Dry, Intact, Normal Color #1 Interpretation EKG Date: 06/09/21 Time: 19:42 Rhythm: NSR Rate (Beats/Min): 101 [place]: Normal P-Wave: Present QRS: Normal ST-T: Normal QT: Normal CT/PQ Interval: 176 EKG Interpretation Comments: sinus tachycardia rate of 101 without ischemic changes Course - Vital Signs Last Recorded V/S: Last Vital Signs Temp 99.4 F 06/09/21 19:39 Pulse 111 H 06/09/21 19:39 Resp 20 06/09/21 19:39 BP 183/99 H 06/09/21 19:39 Pulse Ox 99 06/09/21 19:39 - Orders/Labs/Meds Orders: Active Orders 24 hr Category Date Time Status EKG Documentation Completion [RC] STAT Care 06/09/21 19:41 Active Saline Lock Insert [OM.PC] Stat Oth 06/09/21 19:41 Ordered Labs: Laboratory Tests 06/09/21 06/09/21 06/09/21 Range/Units 19:40 19:40 21:40 WBC 6.61 (4.0-11.0) K/uL RBC 4.97 (4.30-5.90) M/uL Hgb 14.3 (12.0-16.0) g/dL Hct 42.5 (36.0-46.0) % MCV 85.5 (80.0-98.0) fL MCH 28.8 (27.0-32.0) pg MCHC 33.6 (31.0-37.0) g/dL RDW Std Deviation 48.0 (28.0-62.0) fl RDW Coeff of Jhoana 16 H (11.0-15.0) % Plt Count 236 (150-400) K/uL MPV 10.60 (7.40-12.00) fL Neut % (Auto) 61.0 (48.0-80.0) % Lymph % (Auto) 29.0 (16.0-40.0) % [place] % (Auto) 7.9 (0.0-15.0) % Eos % (Auto) 1.8 (0.0-7.0) % Baso % (Auto) 0.3 (0.0-1.5) % Neut # (Auto) 4.0 (1.4-5.7) K/uL Lymph # (Auto) 1.9 (0.6-2.4) K/uL [place] # (Auto) 0.5 (0.0-0.8) K/uL Eos # (Auto) 0.1 (0.0-0.7) K/uL Baso # (Auto) 0.0 (0.0-0.1) K/uL Nucleated RBC % 0.0 /100WBC Nucleated RBCs # 0 K/uL Sodium 136 (136-145) mmol/L Potassium 4.0 (3.5-5.1) mmol/L Chloride 101 (98-107) mmol/L Carbon Dioxide 26.6 (21.0-32.0) mmol/L BUN 12 (7.0-18.0) mg/dL Creatinine 1.1 H (0.6-1.0) mg/dL Est Cr Clr Drug Dosing 67.50 mL/min Estimated GFR (MDRD) 53.7 ml/min Glucose 192 H (74-106) mg/dL Calcium 8.8 (8.5-10.1) mg/dL Total Bilirubin 0.3 (0.2-1.0) mg/dL AST 25 (15-37) IU/L ALT 40 (14-63) IU/L Alkaline Phosphatase 133 H (46-116) U/L Troponin I < 0.050 < 0.050 (0.000-0.056) ng/mL Total Protein 7.6 (6.4-8.2) g/dL Albumin 3.7 (3.4-5.0) g/dL Globulin 3.9 (2.6-4.0) g/dL Albumin/Globulin Ratio 0.9 (0.9-1.6) Free T4 0.94 (0.76-1.46) ng/dL TSH, Ultra Sensitive 3.99 H (0.36-3.74) uIU/mL Meds: Medications Discontinued Medications Generic Name Dose Route Start Last Admin Trade Name Fabiana PRN Reason Stop Dose Admin Aspirin 324 mg 06/09/21 19:41 06/09/21 19:50 Aspirin 81 Mg Tab.Chew PO 06/09/21 19:42 324 mg ONETIME ONE Administration Al Hydroxide/Mg Hydroxide 15 0 ml 06/09/21 20:30 06/09/21 20:47 ml/ Lidocaine HCl 5 ml PO 06/09/21 20:31 20 each ONETIME ONE Administration Famotidine 20 mg 06/09/21 20:30 06/09/21 20:47 Famotidine 20 Mg/2 Ml Sdv IVPUSH 06/09/21 20:31 20 mg ONETIME ONE Administration Sodium Chloride 1,000 mls @ 999 mls/hr 06/09/21 19:41 06/09/21 19:50 Normal Saline IV 06/09/21 20:41 999 mls/hr .Bolus ONE Administration Lorazepam 1 mg 06/09/21 19:41 06/09/21 19:50 Lorazepam 2 Mg/Ml Sdv IVPUSH 06/09/21 19:42 1 mg ONETIME ONE Administration - Re-Assessments/Exams Free Text/Narrative Re-Assessment/Exam: 06/09/21 20:31 Patient symptoms are improving. She does not feel her heart racing as much after IV fluid bolus and Ativan. She states that she still experiencing the pain but it does seem to be improving. Will trial GI cocktail and Pepcid. On physical reassessment she does have reproducible tenderness to palpation of upper back and left anterior chest. She also thinks maybe she could have pulled a muscle. Will get a repeat troponin level at 2145 to ensure no rise and then disposition accordingly. 06/09/21 22:19 Second troponin remains negative. Patient's symptoms continue to improve. Likely anxiety but recommend PMD f/u and consideration of cardiac stress testing. Departure - Departure Time of Disposition: 22:19 Disposition: Home, Self-Care 01 Condition: Good Clinical Impression: Chest pain Qualifiers: Chest pain type: unspecified Qualified Code(s): R07.9 - Chest pain, unspecified - Discharge Information Instructions: Nonspecific Chest Pain, Adult Additional Instructions: Your labs and imaging were unremarkable. I would recommend following up with your primary care physician to discuss your chest pain and consider getting a cardiac stress test. The following information is given to patients seen in the emergency department who are being discharged to home. This information is to outline your options for follow-up care. We provide all patients seen in our emergency department with a follow-up referral. The need for follow-up, as well as the timing and circumstances, are variable depending upon the specifics of your emergency department visit. If you don't have a primary care physician on staff, we will provide you with a referral. We always advise you to contact your personal physician following an emergency department visit to inform them of the circumstance of the visit and for follow-up with them and/or the need for any referrals to a consulting specialist. The emergency department will also refer you to a specialist when appropriate. This referral assures that you have the opportunity for follow-up care with a specialist. All of these measure are taken in an effort to provide you with optimal care, which includes your follow-up. Under all circumstances we always encourage you to contact your private physician who remains a resource for coordinating your care. When calling for follow-up care, please make the office aware that this follow-up is from your recent emergency room visit. If for any reason you are refused follow-up, please contact the [facility] Emergency Department at and asked to speak to the emergency department charge nurse. Please follow up with your primary care physician. If you do not have a primary care physician, see below: [facility] [address] [place] [id number] [facility] [address] [place] [address] [facility] [address] [place] [id number] Sepsis Event Note (ED) - Focused Exam Vital Signs: Vital Signs Temp Pulse Resp BP Pulse Ox 06/09/21 19:39 99.4 F 111 H 20 183/99 H 99 - My Orders Last 24 Hours: My Active Orders 06/09/21 19:41 EKG Documentation Completion [RC] STAT Saline Lock Insert [OM.PC] Stat - Assessment/Plan Last 24 Hours: My Active Orders 06/09/21 19:41 EKG Documentation Completion [RC] STAT Saline Lock Insert [OM.PC] Stat
[2021-06-09 20:22] LABS: BLOOD UREA NITROGEN,BUN 12 mg/dL (7.0-18.0); CARBON DIOXIDE,CO2 26.6 mmol/L (21.0-32.0); CHLORIDE,CL 101 mmol/L (98-107); GLUCOSE RANDOM 192 mg/dL (74-106); SODIUM,NA 136 mmol/L (136-145)
[2021-06-09] MEDS ORDERED: Alum Hydrox/Mag Hydrox/Simeth 15 ML, Lidocaine 2% 5 ML PO ONE ×2 (20:30)
[2021-06-09] MEDS ORDERED: Famotidine 20 MG/2 ML SDV IVPUSH ONE (20:30)
--- NOTE | 2021-06-09 20:40 | CR ---
INDICATION: Chest pain. COMPARISON: 09/11/2020. FINDINGS: A portable AP view of the chest was obtained. The cardiac silhouette is stable. The pulmonary vasculature is within normal limits. The lungs are clear bilaterally. IMPRESSION: Stable chest x-ray. No evidence of acute pulmonary disease. Dictated by Jeremy Mojica MD @ 06/09/2021 8:38:[address] Jeremy Mojica @ Jun 09 2021 8:38PM
== END 2021-06-09 22:30 | disposition home or self-care (01) ==
LOC: MW.ED 19:35
DX: R07.89 Other chest pain (principal); R00.0 Tachycardia, unspecified; E66.9 Obesity, unspecified; Z68.43 Body mass index [BMI] 50.0-59.9, adult
CPT/HCPCS: 36415; 71045; 80053; 84439; 84443; 84484; 85025; 93005; 96374; 96375; 99285; A9270; J2060; J3490; J7030

== ENCOUNTER 2022-07-04 18:06 | Emergency (ER) | payer BC, OTHER | END 2022-07-04 19:42 | disposition left against medical advice (07) | LOC: MW.ED 18:06 | DX: Z53.21 Procedure and treatment not carried out due to patient leaving prior to being seen by health care provider (principal) | CPT/HCPCS: 93005 ==

== ENCOUNTER 2022-12-18 11:30 | Emergency (ER) | payer BC ==
[2022-12-18] MEDS ORDERED: Ondansetron 4 MG/2 ML SDV IVPUSH ONE (12:24)
[2022-12-18 12:30] LABS: CARBON DIOXIDE,CO2 29.4 mmol/L (21.0-32.0)
== END 2022-12-18 14:16 | disposition home or self-care (01) ==
LOC: MW.ED 11:30
DX: R07.89 Other chest pain (principal); Z20.822 Contact with and (suspected) exposure to COVID-19
CPT/HCPCS: 36415; 71045; 71045-26; 80048; 84484; 85025; 93010; 99284; 99285; U0002

== ENCOUNTER 2023-03-24 08:16 | Emergency (ER) | payer BC ==
[2023-03-24] MEDS ORDERED: Meclizine 25 MG Tab PO ONE (09:22)
[2023-03-24 10:19] LABS: APPEARANCE,URINE CLEAR; BILIRUBIN,URINE NEGATIVE (NEGATIVE); COLOR,URINE YELLOW; GLUCOSE,URINE NEGATIVE (NEGATIVE); KETONES,URINE NEGATIVE (NEGATIVE); LEUKOCYTE ESTERASE,URINE NEGATIVE (NEGATIVE); NITRITE,URINE NEGATIVE (NEGATIVE); OCCULT BLOOD,URINE NEGATIVE (NEGATIVE); PROTEIN,URINE NEGATIVE (NEGATIVE); UROBILINOGEN,URINE 0.2 EU/dL (<2.0)
== END 2023-03-24 13:07 | disposition home or self-care (01) ==
LOC: MW.ED 08:16
DX: R42 Dizziness and giddiness (principal); I10 Essential (primary) hypertension; E11.9 Type 2 diabetes mellitus without complications; Z79.84 Long term (current) use of oral hypoglycemic drugs; Z79.899 Other long term (current) drug therapy
CPT/HCPCS: 70450; 81003; 93005; 99284; A9270; 93010

== ENCOUNTER 2023-07-29 11:16 | Emergency (ER) | payer BC ==
[2023-07-29 12:13] LABS: APPEARANCE,URINE CLEAR; BILIRUBIN,URINE NEGATIVE (NEGATIVE); COLOR,URINE YELLOW; GLUCOSE,URINE NEGATIVE (NEGATIVE); KETONES,URINE NEGATIVE (NEGATIVE); LEUKOCYTE ESTERASE,URINE NEGATIVE (NEGATIVE); NITRITE,URINE NEGATIVE (NEGATIVE); OCCULT BLOOD,URINE NEGATIVE (NEGATIVE); PROTEIN,URINE NEGATIVE (NEGATIVE); UROBILINOGEN,URINE 0.2 EU/dL (<2.0)
[2023-07-29] MEDS ORDERED: Sodium Chloride 0.9% 1,000 ML IV ONE (12:13)
[2023-07-29] MEDS ORDERED: Ondansetron 4 MG/2 ML SDV IVPUSH ONE (12:13)
[2023-07-29] MEDS ORDERED: Morphine 4 MG/ML Syringe IVPUSH ONE (12:13)
[2023-07-29] MEDS ORDERED: Ketorolac 30 MG/ML SDV IVPUSH ONE (12:15)
[2023-07-29 12:28] LABS: BASOPHILS PERCENT AUTO 0.4 % (0.0-1.5); EOSINOPHILS ABSOLUTE AUTO 0.1 K/uL (0.0-0.7); EOSINOPHILS PERCENT AUTO 1.6 % (0.0-7.0); HEMATOCRIT 43.2 % (36.0-46.0); HEMOGLOBIN 14.3 g/dL (12.0-16.0); LYMPHOCYTES ABSOLUTE AUTO 1.3 K/uL (0.6-2.4); LYMPHOCYTES PERCENT AUTO 26.1 % (16.0-40.0); MEAN CORPUSCULAR HEMOGLOBIN 28.1 pg (27.0-32.0); MEAN CORPUSCULAR HGB CONC 33.1 g/dL (31.0-37.0); MEAN CORPUSCULAR VOLUME 84.9 fL (80.0-98.0); MONOCYTES ABSOLUTE AUTO 0.4 K/uL (0.0-0.8); MONOCYTES PERCENT AUTO 7.2 % (0.0-15.0); NEUTROPHILS ABSOLUTE AUTO 3.3 K/uL (1.4-5.7); NEUTROPHILS PERCENT AUTO 64.7 % (48.0-80.0); NRBC ABSOLUTE 0 K/uL; PLATELET COUNT,PLT 240 K/uL (150-400); RED BLOOD CELL COUNT 5.09 M/uL (4.30-5.90); WHITE BLOOD CELL COUNT,WBC 5.13 K/uL (4.0-11.0)
[2023-07-29 12:54] LABS: A/G RATIO 0.9 (0.9-1.6); ALBUMIN 3.6 g/dL (3.4-5.0); BILIRUBIN TOTAL 0.2 mg/dL (0.2-1.0); CALCIUM 8.7 mg/dL (8.5-10.1); CARBON DIOXIDE,CO2 28.1 mmol/L (21.0-32.0); EST CRCL DRUG DOSING (CG) 72.68 mL/min; POTASSIUM,K 4.2 mmol/L (3.5-5.1); PROTEIN TOTAL,TP 7.7 g/dL (6.4-8.2)
[2023-07-29] MEDS ORDERED: Iopamidol 755 MG/ML 500 ML Multipack Bottle IVPUSH STA (13:48)
== END 2023-07-29 16:10 | disposition home or self-care (01) ==
LOC: MW.ED 11:16
DX: N83.201 Unspecified ovarian cyst, right side (principal); E11.9 Type 2 diabetes mellitus without complications
CPT/HCPCS: 36415; 74178; 80053; 81003; 83690; 85025; 86304; 96361; 96374; 99284; J2405; J7030; Q9967

== ENCOUNTER 2024-02-05 03:56 | Emergency (ER) | payer BC ==
[2024-02-05 04:17] LABS: BASOPHILS ABSOLUTE AUTO 0.03 K/uL (0.00-0.20); BASOPHILS PERCENT AUTO 0.5 % (0.0-1.0); EOSINOPHILS ABSOLUTE AUTO 0.13 K/uL (0.00-0.45); EOSINOPHILS PERCENT AUTO 2.2 % (0.0-6.0); HEMATOCRIT 43.4 % (37.0-47.0); HEMOGLOBIN 14.5 g/dL (12.0-16.0); IMMATURE GRAN ABSOLUTE AUTO 0.02 K/uL (0.00-0.05); IMMATURE GRAN PERCENT AUTO 0.3 % (0.0-0.4); LYMPHOCYTES ABSOLUTE AUTO 2.39 K/uL (1.00-4.80); LYMPHOCYTES PERCENT AUTO 39.8 % (24.0-44.0); MEAN CORPUSCULAR HEMOGLOBIN 28.3 pg (28.0-32.0); MEAN CORPUSCULAR HGB CONC 33.4 g/dL (32.0-36.0); MEAN CORPUSCULAR VOLUME 84.6 fL (83.0-99.0); MEAN PLATELET VOLUME 10.2 fL (9.4-12.3); MONOCYTES ABSOLUTE AUTO 0.42 K/uL (0.00-0.80); NEUTROPHILS ABSOLUTE AUTO 3.02 K/uL (1.80-7.70); NEUTROPHILS PERCENT AUTO 50.2 % (41.0-71.0); PLATELET COUNT,PLT 229 K/uL (150-400); RED BLOOD CELL COUNT 5.13 M/uL (4.10-5.30); WHITE BLOOD CELL COUNT,WBC 6.01 K/uL (3.9-11.3)
[2024-02-05 04:41] LABS: A/G RATIO 0.8 (0.9-1.6); ALANINE AMINOTRANSFERASE,ALT 33 IU/L (14-63); ALBUMIN 3.4 g/dL (3.4-5.0); ALKALINE PHOSPHATASE 137 U/L (46-116); ASPARTATE AMNIOTRANSFERASE,AST 19 IU/L (15-37); BILIRUBIN TOTAL 0.3 mg/dL (0.2-1.0); BLOOD UREA NITROGEN,BUN 20 mg/dL (7.0-18.0); CALCIUM 9.8 mg/dL (8.5-10.1); CARBON DIOXIDE,CO2 30.2 mmol/L (21.0-32.0); CHLORIDE,CL 103 mmol/L (98-107); CREATININE 1.2 mg/dL (0.6-1.0); GLUCOSE RANDOM 180 mg/dL (74-106); POTASSIUM,K 4.4 mmol/L (3.5-5.1); PROTEIN TOTAL,TP 7.6 g/dL (6.4-8.2); SODIUM,NA 138 mmol/L (136-145)
[2024-02-05 04:42] LABS: ESTIMATED GFR 56 mL/min (>60)
[2024-02-05] MEDS: Iopamidol 755 MG/ML 500 ML Multipack Bottle IVPUSH ONE (06:15)
== END 2024-02-05 08:16 | disposition home or self-care (01) ==
LOC: MW.ED 03:56
DX: R07.89 Other chest pain (principal); I10 Essential (primary) hypertension; E11.9 Type 2 diabetes mellitus without complications; Z79.899 Other long term (current) drug therapy; Z75.8 Other problems related to medical facilities and other health care
CPT/HCPCS: 36415; 71046; 71275; 74175; 80053; 84484; 84703; 85025; 93005; 99285; Q9967; 93010; 99284

== ENCOUNTER 2024-06-19 02:37 | Emergency (ER) | payer BC ==
[2024-06-19 03:11] LABS: BASOPHILS ABSOLUTE AUTO 0.03 K/uL (0.00-0.20); BASOPHILS PERCENT AUTO 0.5 % (0.0-1.0); EOSINOPHILS ABSOLUTE AUTO 0.14 K/uL (0.00-0.45); EOSINOPHILS PERCENT AUTO 2.2 % (0.0-6.0); HEMATOCRIT 43.1 % (37.0-47.0); HEMOGLOBIN 14.3 g/dL (12.0-16.0); IMMATURE GRAN ABSOLUTE AUTO 0.02 K/uL (0.00-0.05); IMMATURE GRAN PERCENT AUTO 0.3 % (0.0-0.4); LYMPHOCYTES PERCENT AUTO 33.4 % (24.0-44.0); MEAN CORPUSCULAR HEMOGLOBIN 28.1 pg (28.0-32.0); MEAN CORPUSCULAR HGB CONC 33.2 g/dL (32.0-36.0); MEAN CORPUSCULAR VOLUME 84.8 fL (83.0-99.0); MEAN PLATELET VOLUME 10.4 fL (9.4-12.3); MONOCYTES ABSOLUTE AUTO 0.53 K/uL (0.00-0.80); MONOCYTES PERCENT AUTO 8.4 % (0.0-8.0); NEUTROPHILS ABSOLUTE AUTO 3.46 K/uL (1.80-7.70); NEUTROPHILS PERCENT AUTO 55.2 % (41.0-71.0); PLATELET COUNT,PLT 240 K/uL (150-400); RED BLOOD CELL COUNT 5.08 M/uL (4.10-5.30); WHITE BLOOD CELL COUNT,WBC 6.28 K/uL (3.9-11.3)
[2024-06-19 03:20] LABS: A/G RATIO 0.9 (0.9-1.6); ALBUMIN 3.5 g/dL (3.4-5.0); BILIRUBIN TOTAL 0.4 mg/dL (0.2-1.0); CARBON DIOXIDE,CO2 26.1 mmol/L (21.0-32.0); CREATININE 1.1 mg/dL (0.6-1.0); EST CRCL DRUG DOSING (CG) 65.36 mL/min; POTASSIUM,K 4.3 mmol/L (3.5-5.1); PROTEIN TOTAL,TP 7.2 g/dL (6.4-8.2)
[2024-06-19] MEDS: Iopamidol 755 MG/ML 500 ML Multipack Bottle IVPUSH STA (03:41)
[2024-06-19] MEDS: Ketorolac 30 MG/ML SDV IVPUSH ONE (03:58)
[2024-06-19] MEDS: Ondansetron 4 MG/2 ML SDV IVPUSH ONE (03:58)
[2024-06-19] MEDS: Sodium Chloride 0.9% 10 ML Syringe FLUSH PRN (03:59)
[2024-06-19] MEDS: Sodium Chloride 0.9% 2.5 ML Syringe FLUSH PRN (04:00)
[2024-06-19 04:34] LABS: BILIRUBIN,URINE NEGATIVE (NEGATIVE); COLOR,URINE YELLOW; GLUCOSE,URINE NEGATIVE (NEGATIVE); KETONES,URINE NEGATIVE (NEGATIVE); LEUKOCYTE ESTERASE,URINE NEGATIVE (NEGATIVE); NITRITE,URINE NEGATIVE (NEGATIVE); OCCULT BLOOD,URINE LARGE (NEGATIVE); PH,URINE 5.5 (5.0-8.0); PROTEIN,URINE NEGATIVE (NEGATIVE); UROBILINOGEN,URINE 0.2 EU/dL (<2.0)
[2024-06-19 04:45] LABS: APPEARANCE,URINE SLT CLOUDY
[2024-06-19 04:47] LABS: BACTERIA,URINE FEW (NEGATIVE); EPITHELIAL CELLS,URINE FEW (NONE-FEW); RBC,URINE TOO NUMEROUS TO CT (0-2/HPF); WBC,URINE 0-2 (0-5/HPF)
== END 2024-06-19 05:34 | disposition home or self-care (01) ==
LOC: MW.ED 02:37
DX: N83.201 Unspecified ovarian cyst, right side (principal); I10 Essential (primary) hypertension; E11.9 Type 2 diabetes mellitus without complications; Z79.84 Long term (current) use of oral hypoglycemic drugs; Z79.899 Other long term (current) drug therapy
CPT/HCPCS: 36415; 74177; 80053; 81001; 83690; 84703; 85025; 96374; 96375; 99284; J1885; J2405; J3490; Q9967

== ENCOUNTER 2025-03-16 19:31 | Emergency (ER) | payer BC ==
[2025-03-16 19:52] LABS: BASOPHILS ABSOLUTE AUTO 0.03 K/uL (0.00-0.20); BASOPHILS PERCENT AUTO 0.4 % (0.0-1.0); EOSINOPHILS PERCENT AUTO 1.3 % (0.0-6.0); HEMATOCRIT 39.4 % (37.0-47.0); HEMOGLOBIN 13.4 g/dL (12.0-16.0); IMMATURE GRAN ABSOLUTE AUTO 0.03 K/uL (0.00-0.05); IMMATURE GRAN PERCENT AUTO 0.4 % (0.0-0.4); LYMPHOCYTES ABSOLUTE AUTO 2.13 K/uL (1.00-4.80); LYMPHOCYTES PERCENT AUTO 27.2 % (24.0-44.0); MEAN CORPUSCULAR HEMOGLOBIN 28.3 pg (28.0-32.0); MEAN CORPUSCULAR VOLUME 83.3 fL (83.0-99.0); MEAN PLATELET VOLUME 10.2 fL (9.4-12.3); MONOCYTES ABSOLUTE AUTO 0.55 K/uL (0.00-0.80); NEUTROPHILS ABSOLUTE AUTO 4.98 K/uL (1.80-7.70); NEUTROPHILS PERCENT AUTO 63.7 % (41.0-71.0); PLATELET COUNT,PLT 213 K/uL (150-400); RED BLOOD CELL COUNT 4.73 M/uL (4.10-5.30); WHITE BLOOD CELL COUNT,WBC 7.82 K/uL (3.9-11.3)
[2025-03-16] MEDS: Ondansetron 4 MG/2 ML SDV IVPUSH ONE (20:08)
[2025-03-16] MEDS: Pantoprazole 40 MG in Sodium Chloride 0.9% 10 ML IVPUSH ONE (20:08)
[2025-03-16 20:26] LABS: ALANINE AMINOTRANSFERASE,ALT 22 IU/L (14-63); ALBUMIN 3.7 g/dL (3.4-5.0); ALKALINE PHOSPHATASE 105 U/L (46-116); ASPARTATE AMNIOTRANSFERASE,AST 15 IU/L (15-37); BILIRUBIN TOTAL 0.4 mg/dL (0.2-1.0); BLOOD UREA NITROGEN,BUN 15 mg/dL (7.0-18.0); CALCIUM 9.3 mg/dL (8.5-10.1); CARBON DIOXIDE,CO2 29.5 mmol/L (21.0-32.0); CHLORIDE,CL 104 mmol/L (98-107); CHOLESTEROL HDL 45 mg/dL (40-60); CHOLESTEROL LDL CALCULATED 113 mg/dL (60-180); CHOLESTEROL TOTAL 187 mg/dL (50-200); CREATININE 1.3 mg/dL (0.6-1.0); EST CRCL DRUG DOSING (CG) 54.71 mL/min; ESTIMATED GFR 50 mL/min (>60); GLUCOSE RANDOM 114 mg/dL (74-106); LIPASE 47 U/L (16-77); MAGNESIUM 2.2 mg/dL (1.8-2.4); POTASSIUM,K 3.5 mmol/L (3.5-5.1); PRO B-TYPE NATRIUR PEPT,BNPPRO 168 pg/mL (0-125); PROTEIN TOTAL,TP 7.4 g/dL (6.4-8.2); SODIUM,NA 139 mmol/L (136-145); TRIGLYCERIDES 145 mg/dL (0-200); VLDL CHOLESTEROL 29 mg/dL (5-55)
== END 2025-03-16 21:39 | disposition home or self-care (01) ==
LOC: MW.ED 19:31
DX: R06.02 Shortness of breath (principal); R07.89 Other chest pain; M79.602 Pain in left arm; R79.89 Other specified abnormal findings of blood chemistry; E11.9 Type 2 diabetes mellitus without complications; Z86.59 Personal history of other mental and behavioral disorders; Z79.84 Long term (current) use of oral hypoglycemic drugs; Z79.899 Other long term (current) drug therapy
CPT/HCPCS: 36415; 71045; 80053; 80061; 82947; 83690; 83735; 83880; 84484; 84703; 85025; 87426; 93005; 96374; 96375; 99285; J2405; J2470; 93010; 99283